=== PATIENT | male | born 1960 | race Caucasian/White ===

== ENCOUNTER → 2019-10-26 | Outpatient (CLI) | payer BC, OTHER ==
--- NOTE | 2019-10-26 14:28 | CARD ---
MR#: [id number] Date of Study: 10/26/2019 Ordering Physician: ZULEMA BELRTAN, Referring Physician: ZULEMA BELTRAN, Tech: Karina Brush APPROVED REPORT EXAM: Two-dimensional and M-mode echocardiogram with Doppler and color Doppler. Other Information Quality : 105HR: 63bpm Rhythm : NSR INDICATION Hypertension/HCVD RISK FACTORS Hyperlipidemia 2D DIMENSIONS RVDd2.9 (2.9-3.5cm)Left Atrium(2D)3.9 (1.6-4.0cm) IVSd1.2 (0.7-1.1cm)Aortic Root(2D)2.9 (2.0-3.7cm) LVDd4.8 (3.9-5.9cm)LVOT Diameter2.0 (1.8-2.4cm) PWd1.2 (0.7-1.1cm)LVDs4.0 (2.5-4.0cm) FS (%) 16.9 %SV38.2 ml Aortic Valve AoV Peak Darshan.143.8cm/sAoV VTI25.4cm AO Peak GR.8.3mmHgLVOT Peak Darshan.94.1cm/s LVOT VTI 19.78cmAO Mean GR.4mmHg CHAD (VMAX)1.88ll9LWT (VTI)2.38cm2 AI P 1/2 Swpi294rc Mitral Valve MV E Wnwevelt93.0cm/sMV DECEL [id number] MV A Ufxvavjt53.2cm/sMV E Mean Gr.1mmHg MV XCF25udH/A Ratio0.8 MVA (PHT)2.83cm2 TDI E/Lateral E'8.0E/Medial E'10.6 Pulmonary Valve PV Peak Hhemiiil24.1cm/sPV Peak Grad.3mmHg Tricuspid Valve TR P. Qkexfdzg810eq/sRAP MKCOYRXW4ijWf TR Peak Gr.66hiOkWGDR82rjXv Pulmonary Vein S1 Nzvzqhkq50.5cm/sD2 Zdldmroq19.0cm/s PVa [id number] LEFT VENTRICLE The left ventricle is normal size. There is mild concentric left ventricular hypertrophy. The left ve ntricular systolic function is low normal. The Ejection Fraction is estimated at 50%. There are no re gional wall motion abnormalities. Transmitral Doppler flow pattern is Grade I-abnormal relaxation pat tern. RIGHT VENTRICLE The right ventricle is normal size. There is normal right ventricular wall thickness. The right ventr icular systolic function is normal. ATRIA The left atrium size is normal. The right atrium size is normal. The interatrial septum is intact wit h no evidence for an atrial septal defect or patent foramen ovale as noted on 2-D or Doppler imaging. AORTIC VALVE The aortic valve is thickened but opens well. Doppler and Color Flow revealed trace aortic regurgitat ion. There is no significant aortic valvular stenosis. MITRAL VALVE The mitral valve is normal in structure and function. There is no evidence of mitral valve prolapse. There is no mitral valve stenosis. Doppler and Color-flow revealed trace mitral regurgitation. TRICUSPID VALVE The tricuspid valve is normal in structure and function. Doppler and Color Flow revealed trace tricus pid regurgitation with an estimated PAP of 27 mmHg. There is no tricuspid valve stenosis. PULMONIC VALVE The pulmonic valve is not well visualized. Doppler and Color Flow revealed no pulmonic valvular regur gitation. GREAT VESSELS The aortic root is normal in size. The IVC is normal in size and collapses >50% with inspiration. PERICARDIAL EFFUSION There is no evidence of significant pericardial effusion. Critical Notification Critical Value: No <Conclusion> The left ventricle is normal size. The left ventricular systolic function is low normal. The Ejection Fraction is estimated at 50%. There is mild concentric left ventricular hypertrophy. Doppler and Color Flow revealed trace aortic regurgitation. There is no significant aortic valvular stenosis. Doppler and Color-flow revealed trace mitral regurgitation. Doppler and Color Flow revealed trace tricuspid regurgitation with an estimated PAP of 27 mmHg. Signed by : Dano Brown MD Electronically Approved : 10/26/2019 14:27:36
== END | disposition home or self-care (01) ==
LOC: ECHO 12:51
PROVIDERS: ATTEND Internal Medicine Cardiovascular Disease
DX: I11.9 Hypertensive heart disease without heart failure (principal)
CPT/HCPCS: 93306

== ENCOUNTER → 2021-10-22 | Outpatient (CLI) | payer BC, OTHER ==
--- NOTE | 2021-10-22 17:17 | KCIC ---
STUDY: MRI of the left knee without contrast INDICATION: Worsening medial knee pain. Medial meniscus tear. COMPARISON: Radiographs from 09/23/2021 TECHNIQUE: Multiplanar MR imaging of the left knee performed without the use of intravenous or intra- articular contrast. FINDINGS: Menisci: Intact lateral meniscus. Torn medial meniscus with a horizontal tear defect seen along the m eniscal body and posterior horn. Free edge blunting at the posterior body/horn junction. Extensive pa rameniscal cyst formation seen posteriorly to abut the PCL, insinuating deep to the majority of the t ibial collateral ligament within the TCL bursa and all the way up to the undersurface of the vastus m edialis, image 14 series 9. Cruciate ligaments: Intact PCL. The ACL is thin and with intrasubstance T2 signal elevation but intac t traversing fibers remain visualized. Collateral ligaments: Intact. Tendons: No tendon tear or advanced tendinosis. 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 No discret e trochlear defect. Lateral compartment: No high-grade or full-thickness defect. Medial compartment: Mild superficial chondrosis. No high-grade or full-thickness defect. Bones: Marrow signal is within normal limits. Miscellaneous: Small amount of knee joint fluid. Mild soft tissue edema superficial to the patellar t endon without prepatellar bursitis. IMPRESSION: 1. Torn medial meniscus with a horizontal defect propagating through the body segment and posterior horn. Marked associated parameniscal cyst formation which fills much of the TCL bursa, extend along t he posterior half of the meniscus to abut the PCL and extend above the medial femoral condyle deep to the vastus medialis muscle as seen on image 14 series 9. The lateral meniscus is intact. 2. Thin and heterogeneous ACL but remaining intact. The PCL is intact as are the collateral ligament s. 3. Mild chondrosis such as at the lateral patellar facet. No high-grade or full-thickness defect. Electronically signed by: AJ JOHNSON MD (10/22/2021 5:15 PM) [id number]
== END ==
LOC: KCIC MRI 13:56
PROVIDERS: ATTEND Physician Assistant
DX: S83.242A Other tear of medial meniscus, current injury, left knee, initial encounter (principal); R60.0 Localized edema; M94.262 Chondromalacia, left knee; M25.462 Effusion, left knee; X58.XXXA Exposure to other specified factors, initial encounter; Y93.89 Activity, other specified; Y92.89 Other specified places as the place of occurrence of the external cause; Y99.8 Other external cause status
CPT/HCPCS: 73721